=== PATIENT | female | born 2005 | race Caucasian/White ===

== ENCOUNTER 2023-03-07 11:08 | Emergency (ER) | payer SELFPAY ==
[~2023-03-07] VITALS: Ht 165.1 cm; Wt 72.6 kg
[~2023-03-07 11:08] MED LIST: Trimox 250 mg250 M1 GT; Zofran Odt4 MG SL
[2023-03-07 11:19] VITALS: BP 127/79
[2023-03-07] MEDS ORDERED: TRAZ100 PO (11:24)
[2023-03-07] MEDS ORDERED: ALEVAZOL56.7 G1 TOP (11:48)
[2023-03-07] MEDS ORDERED: CLOBETASOL EMOL15 G1 TOP (11:52)
== END 2023-03-07 12:03 | disposition home or self-care (01) ==
LOC: ER 11:08
DX: L25.9 Unspecified contact dermatitis, unspecified cause (principal); Z79.899 Other long term (current) drug therapy
CPT/HCPCS: 99283; A9270